=== PATIENT | male | born 1995 | race American Indian/Alaskan Native ===

== ENCOUNTER 2017-01-04 11:17 | Emergency (ER) | payer MEDICAID ==
[2017-01-04 12:51] VITALS: BP 124/71
[2017-01-04 15:03] LABS: Bilirubin,Urine NEG (Negative); Blood,Urine NEG (Negative); Ketones,Urine NEG (Negative); Leukocyte Esterase,Urine TR (Negative); Mucus,Urine 1+ /HPF; Nitrite,Urine NEG (Negative); Protein,Urine <15 mg/dL mg/dL (Negative); Urobilinogen,Urine < 2.0 mg/dL (<2.0)
[2017-01-04] MEDS ORDERED: ROCEPHIN IM ONE (16:45)
[2017-01-04] MEDS ORDERED: XYLOCAINE 1% MPF 5 mL INFILTRATI ONE (16:45)
[2017-01-04] MEDS ORDERED: ZITHROMAX PO ONE (16:47)
[2017-01-04] MEDS ORDERED: FLAGYL PO ONE (16:47)
--- NOTE | 2017-01-04 19:14 | Emergency Department Report ---
ED Male HPI - General Chief complaint: Urogenital-Male Stated complaint: ABD PAIN Time Seen by Provider: 01/04/17 16:41 Source: patient Mode of arrival: Ambulatory Limitations: No Limitations - History of Present Illness Initial comments: 21-year-old -[place] male comes in with complaint of abdominal pain 1 week he reports that his stomach hurts when he P's. He denies any penile discharge denies any nausea vomiting diarrhea denies any fever does complain of urinary frequency denies any hematuria. He does admit to having unprotected sex with 2 partners in the last month. He currently has no past medical history currently takes no meds has no known drug allergies. MD Complaint: dysuria - Related Data Home Medications Medication Instructions Recorded Confirmed Last Taken No Known Home Medications [No 01/04/17 01/04/17 Unknown Reported Home Medications] Allergies Allergy/AdvReac Type Severity Reaction Status Date / Time No Known Allergies Allergy Verified 01/04/17 12:47 ED Review of Systems ROS: Stated complaint: ABD PAIN Other details as noted in HPI ED Past Medical Hx - Past Medical History Hx Hypertension: No - Social History Smoking Status: Current Every Day Smoker - Medications Home Medications: Home Medications Medication Instructions Recorded Confirmed Last Taken Type No Known Home Medications [No 01/04/17 01/04/17 Unknown History Reported Home Medications] ED Physical Exam - General Limitations: No Limitations - ENT ENT exam: Present: normal exam, mucous membranes moist, TM's normal bilaterally - Cardiovascular Cardiovascular Exam: Present: regular rate, normal rhythm, normal heart sounds - GI/Abdominal GI/Abdominal exam: Present: soft. Absent: distended, tenderness - exam: Present: normal inspection. Absent: testicular tenderness, urethral discharge, scrotal swelling ED Course Vital Signs 01/04/17 12:48 Temperature 97.8 F Pulse Rate 63 Respiratory 18 Rate Blood Pressure 124/71 O2 Sat by Pulse 99 Oximetry ED Medical Decision Making - Medical Decision Making Been evaluated by this provider fast track patient be treated for possible exposure for STDs. Stressed the use of condoms stay a monogamous relationship. Recommend HIV tests every 6 months. He verbalized understanding. Critical care attestation.: If time is entered above; I have spent that time in minutes in the direct care of this critically ill patient, excluding procedure time. ED Disposition Clinical Impression: Possible exposure to STD Disposition: LEFT AGAINST MEDICAL ADVICE Is pt being admited?: No Does the pt Need Aspirin: No Condition: Stable Instructions: Sexually Transmitted Diseases (ED), Safe Sex (ED) Referrals: PRIMARY CARE,MD [Primary Care Provider] - 3-5 Days
== END 2017-01-04 16:54 | disposition left against medical advice (07) ==
LOC: ED 11:17
DX: R30.0 Dysuria (principal); R10.9 Unspecified abdominal pain; F17.200 Nicotine dependence, unspecified, uncomplicated
CPT/HCPCS: 81001; 99282

== ENCOUNTER 2018-11-26 11:11 | Emergency (ER) | payer MEDICAID, OTHER ==
[2018-11-26 11:23] VITALS: BP 130/77
[2018-11-26] MEDS ORDERED: NORCO 5/325 PO ONE (13:29)
[2018-11-26] MEDS ORDERED: FLEXERIL PO ONE (13:29)
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
--- NOTE | 2018-11-26 14:47 | XRay Report ---
CERVICAL SPINE, 3 views: History: Neck pain. Findings: The vertebral bodies, disk spaces, posterior elements and prevertebral soft tissues are unremarkable. The dens is intact. No acute fracture or malalignment is identified. Impression: 1. No evidence for acute injury to the cervical spine.
--- NOTE | 2018-11-26 14:47 | XRay Report ---
RIGHT SHOULDER, 3 VIEWS: HISTORY: right shoulder pain. Normal bone mineralization. No acute osseous injury or joint pathology is detected. The soft tissues are unremarkable. IMPRESSION: Right shoulder within normal limits.
--- NOTE | 2018-11-26 14:48 | XRay Report ---
RIGHT RIBS, 3 VIEWS: History: pain. Routine views of the rib cage demonstrate normal mineralization with no significant contour abnormalities, fractures or destructive lesions. PA view of the chest demonstrates no underlying cardiopulmonary abnormalities, fluid or pneumothorax. IMPRESSION: Unremarkable right rib series.
== END 2018-11-26 15:56 | disposition home or self-care (01) ==
LOC: ED 11:11
DX: S00.93XA Contusion of unspecified part of head, initial encounter (principal); S10.93XA Contusion of unspecified part of neck, initial encounter; F10.10 Alcohol abuse, uncomplicated; F12.90 Cannabis use, unspecified, uncomplicated; V89.2XXA Person injured in unspecified motor-vehicle accident, traffic, initial encounter; Y93.89 Activity, other specified; Y92.488 Other paved roadways as the place of occurrence of the external cause; Y99.8 Other external cause status
CPT/HCPCS: 72040; 99283

== ENCOUNTER 2020-03-10 13:21 | Emergency (ER) | payer SELFPAY ==
[2020-03-10] MEDS ORDERED: DIPHtheria,PERTUSSIS(ACELL),TETANUS VACCINE/PF 0.5 ML VIAL IM ONE (13:24)
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
[2020-03-10 13:31] VITALS: BP 125/80
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
== END 2020-03-10 14:26 | disposition home or self-care (01) ==
LOC: ED 13:21
DX: S01.85XA Open bite of other part of head, initial encounter (principal); F17.200 Nicotine dependence, unspecified, uncomplicated; Z98.890 Other specified postprocedural states; Z88.1 Allergy status to other antibiotic agents; W50.3XXA Accidental bite by another person, initial encounter; Y93.89 Activity, other specified; Y92.89 Other specified places as the place of occurrence of the external cause; Y99.8 Other external cause status
CPT/HCPCS: 90471; 90715; 99282